=== PATIENT | female | born 1990 | race Caucasian/White ===

== ENCOUNTER 2019-12-21 23:40 | Observation (INO) | payer OTHER ==
[~2019-12-21] VITALS: Ht 154.9 cm; Wt 51.3 kg
[2019-12-22] MEDS ORDERED: PNV11TAB3 PO
[2019-12-22 00:47] VITALS: BP 94/67
[2019-12-22 00:53] LABS: BASOPHILS % (AUTO) 0.2 % (0.0-2.0); EOSINOPHILS % (AUTO) 0.6 % (0.0-4.0); HEMATOCRIT 28.3 % (36-48); HEMOGLOBIN 9.7 g/dL (12.0-16.0); LYMPHOCYTES # (AUTO) 1.3 K/uL (2.5-16.5); LYMPHOCYTES % (AUTO) 15.7 % (20.5-51.1); MEAN CORPUSCULAR HEMOGLOBIN 32 pg (27-31); MEAN CORPUSCULAR HGB CONC 34 g/dL (33-37); MEAN CORPUSCULAR VOLUME 92.8 fL (80-94); MONOCYTES # (AUTO) 0.4 K/uL (0.8-1.0); MONOCYTES % (AUTO) 4.3 % (1.7-9.3); NEUTROPHILS # (AUTO) 6.6 K/uL (1.8-7.7); NEUTROPHILS % (AUTO) 79.2 % (42.2-75.2); PLATELET COUNT (AUTO) 229 K/uL (140-450); RED BLOOD CELL COUNT(AUTO) 3.05 MIL/uL (4.20-5.40); RED CELL DISTRIBUTION WIDTH 13.3 % (11.6-13.7); WHITE BLOOD COUNT (AUTO) 8.4 K/uL (4.8-10.8)
[2019-12-22 01:17] LABS: PROTHROMBIN TIME 9.9 secs (10.8-13.4)
--- NOTE | 2019-12-22 09:03 | NUR ---
PATIENT HAS BEEN SCREENED AND CATEGORIZED LOW NUTRITION RISK. PATIENT WILL BE SEEN WITHIN 7 DAYS OF ADMISSION. 12/28/[address]
[2019-12-22 16:51] LABS: BASOPHILS % (AUTO) 0.3 % (0.0-2.0); EOSINOPHILS % (AUTO) 0.5 % (0.0-4.0); HEMATOCRIT 29.1 % (36-48); HEMOGLOBIN 9.9 g/dL (12.0-16.0); LYMPHOCYTES # (AUTO) 1.2 K/uL (2.5-16.5); LYMPHOCYTES % (AUTO) 18.8 % (20.5-51.1); MEAN CORPUSCULAR HEMOGLOBIN 32 pg (27-31); MEAN CORPUSCULAR HGB CONC 34 g/dL (33-37); MEAN CORPUSCULAR VOLUME 92.9 fL (80-94); MONOCYTES # (AUTO) 0.3 K/uL (0.8-1.0); MONOCYTES % (AUTO) 4.2 % (1.7-9.3); NEUTROPHILS # (AUTO) 4.8 K/uL (1.8-7.7); NEUTROPHILS % (AUTO) 76.2 % (42.2-75.2); PLATELET COUNT (AUTO) 229 K/uL (140-450); RED BLOOD CELL COUNT(AUTO) 3.14 MIL/uL (4.20-5.40); RED CELL DISTRIBUTION WIDTH 13.5 % (11.6-13.7); WHITE BLOOD COUNT (AUTO) 6.2 K/uL (4.8-10.8)
[2019-12-23] MEDS ORDERED: FERROUS SULFATE 325 MG TABEC PO SCH (08:00)
[2019-12-23] MEDS ORDERED: MULTIVIT/MIN/CA/FE/FA 1 TAB PO SCH (09:00)
== END 2019-12-23 10:50 | disposition home or self-care (01) ==
LOC: MLD 23:40
PROVIDERS: ADMIT Obstetrics & Gynecology; ATTEND Obstetrics & Gynecology
DX: O44.12 Complete placenta previa with hemorrhage, second trimester (principal); O41.02X0 Oligohydramnios, second trimester, not applicable or unspecified; O45.92 Premature separation of placenta, unspecified, second trimester; O99.012 Anemia complicating pregnancy, second trimester; D64.9 Anemia, unspecified; Z3A.20 20 weeks gestation of pregnancy
CPT/HCPCS: 36415; 76805; 76815; 76817; 85025; 85384; 85610; 85730; 86886; 86900; 86901; G0378; Q0092

== ENCOUNTER 2020-01-17 11:02 | Inpatient (IN) | payer OTHER, SELFPAY ==
[~2020-01-17] VITALS: Ht 154.9 cm; Wt 53.1 kg
[2020-01-17] MEDS: SODIUM FERRIC GLUCONATE 125 MG in NACL 0.9% 100 ML IV SCH (01:30)
[~2020-01-17 11:02] MED LIST: PNV11TAB3 PO
[2020-01-17] MEDS ORDERED: LACTATED RINGERS 1,000 ML IV SCH ×2 (11:50→12:30)
[2020-01-17 12:00] VITALS: BP 112/64
[2020-01-17 12:06] LABS: BASOPHILS % (AUTO) 0.3 % (0.0-2.0); EOSINOPHILS % (AUTO) 0.4 % (0.0-4.0); HEMATOCRIT 23.1 % (36-48); HEMOGLOBIN 7.5 g/dL (12.0-16.0); LYMPHOCYTES # (AUTO) 0.8 K/uL (2.5-16.5); LYMPHOCYTES % (AUTO) 12.4 % (20.5-51.1); MEAN CORPUSCULAR HEMOGLOBIN 31 pg (27-31); MEAN CORPUSCULAR HGB CONC 33 g/dL (33-37); MEAN CORPUSCULAR VOLUME 94.7 fL (80-94); MONOCYTES # (AUTO) 0.3 K/uL (0.8-1.0); MONOCYTES % (AUTO) 4.9 % (1.7-9.3); NEUTROPHILS # (AUTO) 5.5 K/uL (1.8-7.7); PLATELET COUNT (AUTO) 259 K/uL (140-450); RED BLOOD CELL COUNT(AUTO) 2.44 MIL/uL (4.20-5.40); RED CELL DISTRIBUTION WIDTH 14.8 % (11.6-13.7); WHITE BLOOD COUNT (AUTO) 6.7 K/uL (4.8-10.8)
[2020-01-17] MEDS ORDERED: FERR-252 PO (12:07)
[2020-01-17 12:08] LABS: APPEARANCE,URINE SL CLOUDY (CLEAR); BILIRUBIN,URINE NEGATIVE (NEGATIVE); BLOOD, URINE 3+ (NEGATIVE); COLOR,URINE YELLOW (YELLOW); LEUKOCYTE ESTERASE ,URINE 1+ (NEGATIVE); NITRITE, URINE NEGATIVE (NEGATIVE); UGLUCOSE NEGATIVE (NEGATIVE)
[2020-01-17 12:17] LABS: RBC,URINE 11-20 (MOD) /HPF (0-5); WBC,URINE 20-60 /HPF (0-5)
[2020-01-17 12:18] LABS: URINE AMORPHOUS URATE 1+ /HPF (None Seen)
[2020-01-17] MEDS: BETAMETH ACET/BETAMETH NA PH 30 MG/5 ML VIAL IM SCH (12:24)
[2020-01-17] MEDS ORDERED: NACL 0.9% 1,000 ML IV SCH (12:25)
[2020-01-17 12:30] LABS: ALBUMIN 2.5 g/dL (3.4-5.0); ANION GAP 14.3 (8-16); CARBON DIOXIDE 22.3 mmol/L (21-32); CREATININE 0.7 mg/dL (0.6-1.3); POTASSIUM 3.6 mmol/L (3.5-5.1); TOTAL BILIRUBIN 0.2 mg/dL (0.0-1.0)
[2020-01-17] MEDS ORDERED: GENTAMICIN PER PHARMACY MC PRN (13:55)
[2020-01-17] MEDS: MAG SULF 20 GM/H2O PREMIX DRIP 500 ML IV SCH (14:00)
[2020-01-17] MEDS: AZITHROMYCIN 500 MG in DEXTROSE 5% 250 ML IV SCH (14:07)
[2020-01-17] MEDS: GENTAMICIN 80 MG in DEXTROSE 5% 100 ML IV SCH (18:26)
[2020-01-17] MEDS ORDERED: diphenhydrAMINE 50 MG/ML VIAL IVP PRN (18:50)
[2020-01-17] MEDS ORDERED: CLINDAMYCIN 900 MG in DEXTROSE 5% 100 ML IV SCH (21:00)
[2020-01-18] MEDS: MAG SULF 20 GM/H2O PREMIX DRIP 500 ML IV SCH ×3 (02:18→23:06)
[2020-01-18] MEDS: GENTAMICIN 80 MG in DEXTROSE 5% 100 ML IV SCH (02:30)
[2020-01-18] MEDS ORDERED: VANCOMYCIN PER PHARMACY MC PRN (07:50)
[2020-01-18 08:39] LABS: HEMATOCRIT 24.7 % (36-48); HEMOGLOBIN 8.1 g/dL (12.0-16.0)
--- NOTE | 2020-01-18 08:50 | NUR ---
PATIENT HAS BEEN SCREENED AND CATEGORIZED LOW NUTRITION RISK. PATIENT WILL BE SEEN WITHIN 7 DAYS OF ADMISSION. 01/23/[address]
[2020-01-18 10:55] LABS: ANION GAP 11.4 (8-16); CARBON DIOXIDE 22.5 mmol/L (21-32); CREATININE 0.7 mg/dL (0.6-1.3); POTASSIUM 3.9 mmol/L (3.5-5.1)
[2020-01-18] MEDS ORDERED: BETAMETH ACET/BETAMETH NA PH 30 MG/5 ML VIAL IM ONE (12:24)
[2020-01-18] MEDS: BETAMETH ACET/BETAMETH NA PH 30 MG/5 ML VIAL IM SCH (12:25)
[2020-01-18] MEDS: VANCOMYCIN 750 MG in DEXTROSE 5% 250 ML IV SCH (13:25)
[2020-01-18] MEDS ORDERED: PROMETHAZINE 25 MG/ML VIAL ONE (13:52)
[2020-01-18] MEDS: AZITHROMYCIN 500 MG in DEXTROSE 5% 250 ML IV SCH (14:00)
[2020-01-19] MEDS: VANCOMYCIN 750 MG in DEXTROSE 5% 250 ML IV SCH ×2 (01:25→13:17)
[2020-01-19] MEDS: SODIUM FERRIC GLUCONATE 125 MG in NACL 0.9% 100 ML IV SCH (03:14)
[2020-01-19 12:35] LABS: ANION GAP 6.8 (8-16); CARBON DIOXIDE 27.3 mmol/L (21-32); CREATININE 0.7 mg/dL (0.6-1.3); POTASSIUM 4.1 mmol/L (3.5-5.1)
[2020-01-19] MEDS: AZITHROMYCIN 500 MG in DEXTROSE 5% 250 ML IV SCH (14:02)
[2020-01-19] MEDS ORDERED: TERBUTALINE 1 MG/ML VIAL SUBQ SCH (16:30)
[2020-01-19 16:37] LABS: HEMATOCRIT 25.7 % (36-48); HEMOGLOBIN 8.3 g/dL (12.0-16.0)
[2020-01-19] MEDS ORDERED: VANCOMYCIN 750 MG in DEXTROSE 5% 250 ML IV SCH (21:00)
== END 2020-01-19 17:47 | disposition short-term general hospital (02) | DRG 566 ==
LOC: MLD 11:02 → OBSVTOIN 11:02
PROVIDERS: ADMIT Obstetrics & Gynecology; ATTEND Obstetrics & Gynecology
PROC: 30233N1 Transfusion of Nonautologous Red Blood Cells into Peripheral Vein, Percutaneous Approach (ICD-10-PCS; principal; 2020-01-17)
DX: O45.92 Premature separation of placenta, unspecified, second trimester (principal); O60.02 Preterm labor without delivery, second trimester; O42.90 Premature rupture of membranes, unspecified as to length of time between rupture and onset of labor, unspecified weeks of gestation; O99.012 Anemia complicating pregnancy, second trimester; O76 Abnormality in fetal heart rate and rhythm complicating labor and delivery; D64.9 Anemia, unspecified; O23.42 Unspecified infection of urinary tract in pregnancy, second trimester; Z3A.24 24 weeks gestation of pregnancy; Z88.0 Allergy status to penicillin
CPT/HCPCS: 36415; 36430; 76819; 80048; 80053; 80202; 81001; 83735; 85018; 85025; 86886; 86900; 86901; 86920; 87086; 87186; 87653-90; J0456; J0690; J0702; J1580; J2550; J2916; J3105; J3370; J3475; J3490; J7060; J7120; P9016; Q0092

== ENCOUNTER 2020-01-30 12:23 | Emergency (ER) | payer OTHER, SELFPAY ==
[~2020-01-30] VITALS: Ht 162.6 cm; Wt 52.2 kg
[~2020-01-30 12:23] MED LIST changes: +FERR-252 PO
[2020-01-30 12:25] VITALS: BP 118/74
[2020-01-30 13:50] VITALS: BP 123/71
== END 2020-01-30 13:50 | disposition home or self-care (01) ==
LOC: MED 12:23
DX: K68.11 Postprocedural retroperitoneal abscess (principal); Z98.890 Other specified postprocedural states; Z88.0 Allergy status to penicillin; Z79.899 Other long term (current) drug therapy
CPT/HCPCS: 99283; 99284